=== PATIENT | male | born 1985 | race Hispanic/Latino ===

== ENCOUNTER 2024-03-25 07:08 | Emergency (ER) | payer SELFPAY ==
[2024-03-25] VITALS (11 sets, daily range): BP systolic 109–146; BP diastolic 60–86
[~2024-03-25] VITALS: Ht 157.5 cm; Wt 54.5 kg
[~2024-03-25 07:08] MED LIST: DIFLUCAN150 MG PO
[2024-03-25] MEDS ORDERED: CEPHALEXIN 250 MG/5 ML SUSPENSION PO ONE (07:30)
[2024-03-25] MEDS ORDERED: KETOROLAC TROMETHAMINE 30 MG/ML SDV IM ONE (07:35)
[2024-03-25] MEDS ORDERED: CEPHALEXIN MONOHYDRATE 500 MG/CAP PO ONE (07:50)
[2024-03-25 08:11] LABS: BASO% 0.8 % (0-3); EOS% 1.2 % (0-8); HEMATOCRIT 41.4 % (39.0-50.0); HEMOGLOBIN 14.5 g/dl (14.0-18.0); IMMATURE GRANULOCYTES 0.1 % (0.0-5.0); LYMPH% 18.3 % (15-41); MEAN CELL VOLUME 86.1 fL CALC (80.0-100.0); MEAN CORPUSCULAR HGB 30.1 pG CALC (26.0-32.0); MONO% 6.5 % (2-13); NEUT# 5.53 thou/uL (1.82-7.42); NEUT% 73.1 % (42-76); RED BLOOD COUNT 4.81 mill/uL (4.70-6.10); RED CELL DISTRI WIDTH 11.9 % (11.5-15.5)
[2024-03-25 08:22] LABS: CREATININE 0.8 mg/dL (0.7-1.3); POTASSIUM 3.4 mmol/l (3.5-5.1)
[2024-03-25] MEDS ORDERED: KEFLEX500 MG PO (09:20)
== END 2024-03-25 09:38 | disposition home or self-care (01) | DRG 603 ==
LOC: ED 07:08
PROVIDERS: Family Medicine
DX: L03.114 Cellulitis of left upper limb (principal); S69.92XA Unspecified injury of left wrist, hand and finger(s), initial encounter; X58.XXXA Exposure to other specified factors, initial encounter; Y92.73 Farm field as the place of occurrence of the external cause; Y99.0 Civilian activity done for income or pay

== ENCOUNTER 2024-05-06 17:52 | Emergency (ER) | payer OTHER ==
[~2024-05-06] VITALS: Ht 157.5 cm; Wt 58.9 kg
[~2024-05-06 17:52] MED LIST changes: +KEFLEX500 MG PO
[2024-05-06] MEDS ORDERED: MORPHINE SULFATE 4 MG/ML VIAL IV ONE (18:00)
[2024-05-06] MEDS ORDERED: ONDANSETRON HCl 4 MG/2 ML SDV IV ONE (18:00)
[2024-05-06] MEDS ORDERED: FLEXERIL5 M1 PO (18:11)
[2024-05-06] MEDS ORDERED: MOTRIN800 MG PO (18:11)
[2024-05-06 18:19] VITALS: BP 125/62
[2024-05-06 18:24] LABS: BASO% 0.6 % (0-3); EOS% 0.9 % (0-8); HEMATOCRIT 41.8 % (39.0-50.0); HEMOGLOBIN 14.6 g/dl (14.0-18.0); IMMATURE GRANULOCYTES 0.6 % (0.0-5.0); LYMPH% 29.6 % (15-41); MEAN CELL VOLUME 87.1 fL CALC (80.0-100.0); MEAN CORPUSCULAR HGB 30.4 pG CALC (26.0-32.0); MEAN CORPUSCULAR HGB CONC 34.9 g/dL CAL (32.0-36.0); MONO% 3.2 % (2-13); NEUT# 8.05 thou/uL (1.82-7.42); NEUT% 65.1 % (42-76); RED BLOOD COUNT 4.8 mill/uL (4.70-6.10); RED CELL DISTRI WIDTH 12.2 % (11.5-15.5)
[2024-05-06 18:30] VITALS: BP 131/77
[2024-05-06 18:36] LABS: ALBUMIN 4.5 g/dL (3.2-5.0); BILIRUBIN, TOTAL 0.8 mg/dL (0.2-1.3); CREATININE 1.1 mg/dL (0.7-1.3); POTASSIUM 3.1 mmol/l (3.5-5.1); TOTAL PROTEIN 7.6 g/dL (6.3-8.2)
[2024-05-06] MEDS ORDERED: POTASSIUM CHLORIDE 20 MEQ/TAB PO ONE (18:40)
[2024-05-06 18:45] VITALS: BP 137/75
[2024-05-06 20:37] VITALS: BP 117/66
[2024-05-06 20:47] LABS: BASO% 0.5 % (0-3); EOS% 0.1 % (0-8); HEMATOCRIT 41.5 % (39.0-50.0); IMMATURE GRANULOCYTES 0.3 % (0.0-5.0); LYMPH% 6.6 % (15-41); MEAN CELL VOLUME 88.3 fL CALC (80.0-100.0); MEAN CORPUSCULAR HGB 29.8 pG CALC (26.0-32.0); MEAN CORPUSCULAR HGB CONC 33.7 g/dL CAL (32.0-36.0); MONO% 7.7 % (2-13); NEUT# 9.27 thou/uL (1.82-7.42); NEUT% 84.8 % (42-76); RED BLOOD COUNT 4.7 mill/uL (4.70-6.10); RED CELL DISTRI WIDTH 12.2 % (11.5-15.5)
[2024-05-06] MEDS ORDERED: SODIUM CHLORIDE 0.9% 1,000 ML IV ONE (20:50)
[2024-05-06 21:06] VITALS: BP 117/66
== END 2024-05-06 21:06 | disposition short-term general hospital (02) | DRG 999 ==
LOC: ED 17:52
PROVIDERS: Emergency Medicine; Internal Medicine
DX: S36.115A Moderate laceration of liver, initial encounter (principal); S06.9X9A Unspecified intracranial injury with loss of consciousness of unspecified duration, initial encounter; S00.83XA Contusion of other part of head, initial encounter; E87.6 Hypokalemia; V49.50XA Passenger injured in collision with unspecified motor vehicles in traffic accident, initial encounter
CPT/HCPCS: Q9967

== ENCOUNTER 2024-08-16 18:50 | Emergency (ER) | payer SELFPAY ==
[~2024-08-16] VITALS: Ht 157.5 cm; Wt 60.0 kg
[2024-08-16] VITALS (12 sets, daily range): BP systolic 113–142; BP diastolic 63–88
[~2024-08-16 18:50] MED LIST changes: +FLEXERIL5 M1 PO; +MOTRIN800 MG PO
[2024-08-16] MEDS ORDERED: OMEPRAZOLE DR20 M2 PO (19:48)
[2024-08-16] MEDS ORDERED: VENTOLIN HFA108 MCG IN (19:48)
== END 2024-08-16 21:20 | disposition home or self-care (01) | DRG 392 ==
LOC: ED 18:50
DX: K21.9 Gastro-esophageal reflux disease without esophagitis (principal); R05.9 Cough, unspecified

== ENCOUNTER 2024-11-04 22:23 | Emergency (ER) | payer SELFPAY ==
[~2024-11-04] VITALS: Ht 152.4 cm; Wt 63.0 kg
[~2024-11-04 22:23] MED LIST changes: +OMEPRAZOLE DR20 M2 PO; +VENTOLIN HFA108 MCG IN
[2024-11-04 22:31] VITALS: BP 132/67
[2024-11-04 23:00] VITALS: BP 116/65
[2024-11-04 23:28] VITALS: BP 116/65
== END 2024-11-04 23:36 | disposition home or self-care (01) | DRG 918 ==
LOC: ED 22:23
DX: T63.441A Toxic effect of venom of bees, accidental (unintentional), initial encounter (principal); R52 Pain, unspecified; Z20.822 Contact with and (suspected) exposure to COVID-19